=== PATIENT | female | born 1930 | race Caucasian/White ===

== ENCOUNTER 2017-02-14 10:15 | Outpatient (CLI) | payer MEDICARE, OTHER ==
--- NOTE | 2017-02-14 12:35 | RAD ---
TWO VIEWS OF THE CHEST: COMPARISON: None. HISTORY: Cough for several weeks. FINDINGS: Two views of the chest show an enlarged cardiomediastinal silhouette. There is no evidence of conso lidation, mass, or pleural effusion. IMPRESSION: Cardiomegaly without evidence of acute cardiopulmonary disease. POS: [facility]
== END 2017-02-14 10:16 | disposition home or self-care (01) ==
LOC: MADRAD 10:15
PROVIDERS: ATTEND Physician Assistant
DX: Z00.00 Encounter for general adult medical examination without abnormal findings (principal); R05 Cough; I51.7 Cardiomegaly
CPT/HCPCS: 71020